=== PATIENT | female | born 1995 | race Two or more races ===

== ENCOUNTER 2021-11-08 08:05 | Emergency (ER) | payer OTHER ==
[~2021-11-08] VITALS: Ht 162.6 cm; Wt 74.4 kg
== END 2021-11-08 12:38 | disposition home or self-care (01) ==
LOC: ER 08:05
DX: O26.891 Other specified pregnancy related conditions, first trimester (principal); E86.0 Dehydration; Z3A.12 12 weeks gestation of pregnancy; Z20.822 Contact with and (suspected) exposure to COVID-19

== ENCOUNTER 2021-12-24 16:01 | Emergency (ER) | payer OTHER ==
[~2021-12-24] VITALS: Ht 162.6 cm; Wt 78.9 kg
== END 2021-12-24 19:53 | disposition home or self-care (01) ==
LOC: ER 16:01
DX: U07.1 COVID-19 (principal)

== ENCOUNTER 2022-01-06 08:25 | Outpatient (CLI) | payer OTHER | END 2022-01-06 09:40 | disposition home or self-care (01) | LOC: PRENATAL 08:25 | PROVIDERS: ATTEND Obstetrics & Gynecology Maternal & Fetal Medicine | DX: O35.0XX0 Maternal care for (suspected) central nervous system malformation in fetus, not applicable or unspecified (principal); O35.3XX0 Maternal care for (suspected) damage to fetus from viral disease in mother, not applicable or unspecified; Z3A.22 22 weeks gestation of pregnancy ==

== ENCOUNTER 2022-02-18 12:14 | Emergency (ER) | payer OTHER ==
[~2022-02-18] VITALS: Ht 162.6 cm; Wt 80.3 kg
== END 2022-02-18 17:03 | disposition home or self-care (01) ==
LOC: ER 12:14
DX: M54.9 Dorsalgia, unspecified (principal); Z20.828 Contact with and (suspected) exposure to other viral communicable diseases